=== PATIENT | female | born 2000 | race American Indian/Alaskan Native ===

== ENCOUNTER 2020-02-22 14:17 | Emergency (ER) | payer SELFPAY ==
[2020-02-22 14:51] LABS: Basophils % (Auto) 0.5 % (0.0-1.8); Eosinophils % (Auto) 0.6 % (0.0-4.3); Hemoglobin 11.2 gm/dl (10.1-14.3); Lymphocytes # (Auto) 2.3 K/mm3 (1.2-5.4); Lymphocytes % (Auto) 35.3 % (13.4-35.0); Mean Corpuscular HGB Conc 34 % (30-34); Mean Corpuscular Volume 85 fl (79-97); Monocytes # (Auto) 0.5 K/mm3 (0.0-0.8); Monocytes % (Auto) 8.1 % (0.0-7.3); Platelet Count 265 K/mm3 (140-440); Red Cell Distribution Width 15.3 % (13.2-15.2)
--- NOTE | 2020-02-22 15:26 | Emergency Department Report ---
ED Female HPI - General Chief complaint: Vaginal Bleeding Stated complaint: ABDOMINAL PAIN 8WKS PREG Time Seen by Provider: 02/22/20 14:57 Source: patient Mode of arrival: Ambulatory Limitations: No Limitations - History of Present Illness Initial comments: The patient was evaluated in the emergency department for symptoms described in the history of present illness. He/she was evaluated in the context of the global COVID-19 pandemic, which necessitated consideration that the patient might be at risk for infection with the virus that causes COVID-19. Institutional protocols and algorithms that pertain to the evaluation of patients at risk for COVID-19 are in a state of rapid change based on information released by regulatory bodies including the CDC and federal and state organizations. These policies and algorithms were followed during the patient's care in the emergency department. Please note that these policies, procedures and recommendations changed on a rapid basis. 19-year-old -[place] female who reports that she is approximately 9 weeks presents to the emergency room complaining of pelvic cramping and spotting x3 days. Patient is 3 para 1 A1 ectopic . Patient reports her last menstrual period was 12/29/2019. Patient states that she has not gone through any pads just a light panty liner. Patient has not started her care. Patient reports that she has had a secondary to her baby was 9 pounds and 6 ounces and she was 41 weeks . Patient delivered at [place]. Patient states after that is when she had the ectopic . 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 denies: nausea/vomiting, fever/chills, loss of appetite, dysuria - Related Data Sexually active: Yes : 3 Para: 1 A: 1 (Ectopic ) Previous Rx's Medication Instructions Recorded Last Taken Type Ibuprofen [Motrin 800 MG tab] 800 mg PO Q8HR PRN #30 tablet 02/22/20 Unknown Rx Nitrofurantoin [place]/M-Cryst 100 mg PO Q12HR 10 Days #20 capsule 02/22/20 Unknown Rx [Macrobid CAP] traMADoL [Ultram 50 MG tab] 50 mg PO Q6HR PRN #12 tablet 02/22/20 Unknown Rx Allergies Allergy/AdvReac Type Severity Reaction Status Date / Time No Known Allergies Allergy Unverified 02/22/20 14:23 ED Review of Systems ROS: Stated complaint: ABDOMINAL PAIN 8WKS PREG Other details as noted in HPI Comment: All other systems reviewed and negative ED Past Medical Hx - Past Medical History Previous Medical History?: No - Surgical History Past Surgical History?: No - Social History Smoking Status: Never Smoker Substance Use Type: None - Medications Home Medications: Home Medications Medication Instructions Recorded Confirmed Last Taken Type Ibuprofen [Motrin 800 MG tab] 800 mg PO Q8HR PRN #30 tablet 02/22/20 Unknown Rx Nitrofurantoin [place]/M-Cryst 100 mg PO Q12HR 10 Days #20 capsule 02/22/20 Unkn own Rx [Macrobid CAP] traMADoL [Ultram 50 MG tab] 50 mg PO Q6HR PRN #12 tablet 02/22/20 Unknown Rx ED Physical Exam - General Limitations: No Limitations General appearance: alert, in no apparent distress - Head Head exam: Present: atraumatic, normocephalic - Eye Eye exam: Present: normal appearance, PERRL, EOMI - ENT ENT exam: Present: normal exam, mucous membranes dry - Neck Neck exam: Present: normal inspection - Respiratory Respiratory exam: Present: normal lung sounds bilaterally - Cardiovascular Cardiovascular Exam: Present: regular rate, normal rhythm. Absent: systolic murmur, diastolic murmur, rubs, gallop - GI/Abdominal GI/Abdominal exam: Present: soft. Absent: distended, tenderness, guarding - Extremities Exam Extremities exam: Present: normal inspection, full ROM - Back Exam Back exam: Present: normal inspection, full ROM - Neurological Exam Neurological exam: Present: alert, oriented X3 - Psychiatric Psychiatric exam: Present: normal affect, normal mood - Skin Skin exam: Present: warm, dry, intact, normal color. Absent: rash ED Course Vital Signs 02/22/20 02/22/20 14:22 17:09 Temperature 98.9 F 98 F Pulse Rate 75 88 Respiratory 20 20 Rate Blood Pressure 107/71 Blood Pressure 125/71 [Left] O2 Sat by Pulse 100 100 Oximetry - Reevaluation(s) Reevaluation #1: 02/22/20 17:00 Radiology called to inform me that it appears that patient has an ectopic . Reevaluation #2: 02/22/20 17:[address] Wong from [facility] regarding patient's results of her ultrasound and blood work. She recommends methotrexate. Discussed with Dr. Tinoco regarding assessment and plan with patient. We both looked up on up-to-date and is states that his if mass is less than 4 cm that it is safe to use methotrexate. Masses 1.1 cm or 11 mm. Spoke with patient regarding assessment and plan. Discussed with patient that we will administer her the methotrexate and she needs to refrain from intercourse until she is seen by FUSING MACHINE TENDER. FUSING MACHINE TENDER the like to see her in 4 days in their office. I did discuss with patient to expect increase bleeding and increased abdominal cramping. Patient was given a [place] for pain management. Patient will be discharged on tramadol and ibuprofen with methotrexate precautions. ED Medical Decision Making - Lab Data Result diagrams: 02/22/20 14:15 - Radiology Data Radiology results: report reviewed [facility] [address] [place] [address] Ultrasound Report Signed Patient: CLAUDE VASQUEZ MR #: [id number] : 2000 Acct:[id number] Age/Sex: 19 / F ADM Date: 02/22/20 Loc: ED Attending Dr: Ordering Physician: JORDY NIXON Date of Service: 02/22/20 Procedure(s): US OB transvaginal Accession Number(s): [id number] cc: JORDY NIXON ULTRASOUND OBSTETRIC INDICATION / CLINICAL INFORMATION: with abdominal pain history of left ectopic. Clinical Gestational Age (GA): 7 weeks 6 days TECHNIQUE: Transabdominal. Transvaginal COMPARISON: None available. FINDINGS: The endometrium is markedly thickened within the uterus measuring approximately 2 cm. Within the thickened endometrium, there is a small cystic area which does not have the appearance for a normal gestational sac. This cystic area measures approximately 13 mm in diameter. ADNEXA: The right ovary is unremarkable. Left ovary is also well visualized and appears unremarkable. However, adjacent to the left ovary, there is abnormal soft tissue density measuring approximately 11 mm in diameter with surrounding free fluid. FREE FLUID: Small to moderate amount of free fluid is present. ADDITIONAL FINDINGS: None. IMPRESSION: 1. No evidence for gestational sac within the uterus at this time. With an hCG of 5000, a gestational sac should be visible. However, there is marked endometrial thickening. 2. Questionable soft tissue mass in the left adnexa adjacent to the left ovary with associated free fluid. It is unclear if this represents an ectopic , but given the lack of an IUP, the finding is certainly worrisome for ectopic . CRITICAL RESULT: Time of Discovery: 1540 BEAMER HAND Time of Communication: 1544 BEAMER HAND Licensed Practitioner Receiving Report: Rolan Read Back Performed: Yes. Signer Name: Maya Brannon MD Signed: 02/22/2020 4:45 PM Workstation Name: [id number] Transcribed By: Dictated By: Maya Brannon MD Electronically Authenticated By: Maya Brannon MD Signed Date/Time: 02/22/201644 DD/ 35 TD/TT: - Medical Decision Making 19-year-old -[place] female who reports that she is approximately 9 weeks presents to the emergency room complaining of pelvic cramping and spotting x3 days. Patient is 3 para 1 A1 ectopic . Patient reports her last menstrual period was 12/29/2019. Patient states that she has not gone through any pads just a light panty liner. Patient has not started her care. Patient reports that she has had a secondary to her baby was 9 pounds and 6 ounces and she was 41 weeks . Patient delivered at [place]. Patient states after that is when she had the ectopic . Vaginal bleeding in protocol has been initiated. Ultrasound less than 14 weeks with transvaginal OB has been ordered. Patient declined pain medication at this time. Critical Care Time: Yes Critical care time in (mins) excluding proc time.: 35 Critical care attestation.: If time is entered above; I have spent that time in minutes in the direct care of this critically ill patient, excluding procedure time. ED Disposition Clinical Impression: Vaginal spotting, Pelvic cramping Ectopic Qualifiers: Location of ectopic : other location Intrauterine status: without intrauterine Qualified Code(s): O00.80 - Other ectopic without intrauterine UTI (urinary tract infection) Qualifiers: Urinary tract infection type: site unspecified Hematuria presence: with hematuria Qualified Code(s): N39.0 - Urinary tract infection, site not specified Disposition: DC-01 TO HOME OR SELFCARE Is pt being admited?: No Does the pt Need Aspirin: No Condition: Stable Instructions: Methotrexate (Injection), Ectopic (ED), Urinary Tract Infection in Women (ED) Additional Instructions: Please complete antibiotics as prescribed. Take pain medication as needed. It is very important that you follow[facility] at [facility]ACH[facility]END[facility] in 4 days for reevaluation of your ectopic . I recommend for you to refrain from intercourse. Be aware that you may have increased pelvic cramping and vaginal bleeding. Prescriptions: Nitrofurantoin [place]/M-Cryst [Macrobid CAP] 100 mg PO Q12HR 10 Days #20 capsule Ibuprofen [Motrin 800 MG tab] 800 mg PO Q8HR PRN #30 tablet PRN Reason: Pain , Severe (7-10) traMADoL [Ultram 50 MG tab] 50 mg PO Q6HR PRN #12 tablet PRN Reason: Pain Referrals: [facility] [Provider Group] - 3-5 Days Forms: Work/School Release Form(ED), Methotrexate D/C Instructions
[2020-02-22 15:32] LABS: Bilirubin,Urine NEG (Negative); Blood,Urine LG (Negative); Color,Urine Red (Yellow); Mucus,Urine 1+ /HPF; Urobilinogen,Urine < 2.0 mg/dL (<2.0)
[2020-02-22 15:34] LABS: RBC,Urine > 182.0 /HPF (0.0-6.0); WBC,Urine > 182.0 /HPF (0.0-6.0)
--- NOTE | 2020-02-22 16:49 | Ultrasound Report ---
ULTRASOUND OBSTETRIC INDICATION / CLINICAL INFORMATION: with abdominal pain history of left ectopic. Clinical Gestational Age (GA): 7 weeks 6 days TECHNIQUE: Transabdominal. Transvaginal COMPARISON: None available. FINDINGS: The endometrium is markedly thickened within the uterus measuring approximately 2 cm. Within the thic kened endometrium, there is a small cystic area which does not have the appearance for a normal gesta tional sac. This cystic area measures approximately 13 mm in diameter. ADNEXA: The right ovary is unremarkable. Left ovary is also well visualized and appears unremarkable. However, adjacent to the left ovary, there is abnormal soft tissue density measuring approximately 1 1 mm in diameter with surrounding free fluid. FREE FLUID: Small to moderate amount of free fluid is present. ADDITIONAL FINDINGS: None. IMPRESSION: 1. No evidence for gestational sac within the uterus at this time. With an hCG of 5000, a gestational sac should be visible. However, there is marked endometrial thickening. 2. Questionable soft tissue mass in the left adnexa adjacent to the left ovary with associated free f luid. It is unclear if this represents an ectopic , but given the lack of an IUP, the findin g is certainly worrisome for ectopic . CRITICAL RESULT: Time of Discovery: 1540 BICYCLE TECHNICIAN Time of Communication: 1544 BICYCLE TECHNICIAN Licensed Practitioner Receiving Report: Rolan Read Back Performed: Yes. Signer Name: Maya Brannon MD Signed: 02/22/2020 4:45 PM Workstation Name: [email or web address]
--- NOTE | 2020-02-22 16:49 | Ultrasound Report ---
ULTRASOUND OBSTETRIC INDICATION / CLINICAL INFORMATION: with abdominal pain history of left ectopic. Clinical Gestational Age (GA): 7 weeks 6 days TECHNIQUE: Transabdominal. Transvaginal COMPARISON: None available. FINDINGS: The endometrium is markedly thickened within the uterus measuring approximately 2 cm. Within the thic kened endometrium, there is a small cystic area which does not have the appearance for a normal gesta tional sac. This cystic area measures approximately 13 mm in diameter. ADNEXA: The right ovary is unremarkable. Left ovary is also well visualized and appears unremarkable. However, adjacent to the left ovary, there is abnormal soft tissue density measuring approximately 1 1 mm in diameter with surrounding free fluid. FREE FLUID: Small to moderate amount of free fluid is present. ADDITIONAL FINDINGS: None. IMPRESSION: 1. No evidence for gestational sac within the uterus at this time. With an hCG of 5000, a gestational sac should be visible. However, there is marked endometrial thickening. 2. Questionable soft tissue mass in the left adnexa adjacent to the left ovary with associated free f luid. It is unclear if this represents an ectopic , but given the lack of an IUP, the findin g is certainly worrisome for ectopic . CRITICAL RESULT: Time of Discovery: 1540 ELECTRICAL SIGN SERVICER Time of Communication: 1544 ELECTRICAL SIGN SERVICER Licensed Practitioner Receiving Report: Rolan Read Back Performed: Yes. Signer Name: Maya Brannon MD Signed: 02/22/2020 4:45 PM Workstation Name: [email or web address]
[2020-02-22 17:10] VITALS: BP 125/71
== END 2020-02-22 18:13 | disposition home or self-care (01) ==
LOC: ED 14:17
DX: O00.80 Other ectopic pregnancy without intrauterine pregnancy (principal); O26.851 Spotting complicating pregnancy, first trimester; O23.41 Unspecified infection of urinary tract in pregnancy, first trimester; O26.891 Other specified pregnancy related conditions, first trimester; R10.2 Pelvic and perineal pain; Z79.899 Other long term (current) drug therapy; Z3A.09 9 weeks gestation of pregnancy
CPT/HCPCS: 36415; 76801; 76817; 81001; 84702; 85025; 86900; 86901; 96372; 99284; J9260